=== PATIENT | female | born 1955 | race African-American/Black ===

== ENCOUNTER 2019-01-06 09:18 | Day surgery (SDC) | payer MEDICARE, OTHER ==
[~2019-01-06] VITALS: Ht 160 cm; Wt 49.9 kg
[2019-01-06 10:12] LABS: HEMATOCRIT 38.8 % (36.0-48.0); HEMOGLOBIN 12.8 g/dL (12.0-16.0); MEAN CORPUSCULAR HEMOGLOBIN 30.8 pg (28.0-32.0); MEAN CORPUSCULAR VOLUME 93.2 fL (81.0-99.0); PLATELET 288 x1000/uL (130-400); RED BLOOD CELL COUNT 4.16 mill/uL (4.2-5.4); RED CELL DISTRIBUTION WIDTH 13.5 % (11.6-14.6)
[2019-01-06] MEDS ORDERED: BENA5TAB6 PO (10:18)
[2019-01-06] MEDS ORDERED: MECL-109 PO (10:18)
[2019-01-06 10:19] LABS: CHLORIDE 111 mEq/L (98-107)
[2019-01-06 10:21] LABS: PARTIAL THROMBOPLASTIN TIME 26.7 sec (23.4-31.0); PROTHROMBIN TIME 10.2 sec (9.1-11.1)
[2019-01-06] MEDS ORDERED: FENTANYL CITRATE/PF 50MCG/ML 2ML VIAL ONE (10:44)
[2019-01-06] MEDS ORDERED: MIDAZOLAM HCL 5 MG/5 ML VIAL ONE (10:45)
[2019-01-06] MEDS ORDERED: TETRACAINE/BENZOCAINE/BUTAMBEN 20 GM SPRAY MM ONE (11:01)
[2019-01-06] MEDS ORDERED: LIDOCAINE HCL 2% JELLY 5ML ONE (11:02)
== END 2019-01-06 14:00 | disposition home or self-care (01) ==
LOC: CARD 09:18
PROVIDERS: ATTEND Specialist
DX: I34.0 Nonrheumatic mitral (valve) insufficiency (principal); I10 Essential (primary) hypertension; R42 Dizziness and giddiness; F32.9 Major depressive disorder, single episode, unspecified
CPT/HCPCS: 36415; 80048; 85027; 85610; 85730; 93312; J2250; J3010